=== PATIENT | female | born 2000 | race Caucasian/White ===

== ENCOUNTER 2019-12-20 12:25 | Emergency (ER) | payer MEDICAID ==
[2019-12-20] MEDS ORDERED: HYDROmorphone 1 MG/ML CARPUJECT IVP STA (12:38)
--- NOTE | 2019-12-20 12:39 | ED Physician Documentation ---
PD HPI ABD PAIN - Stated complaint Stated Complaint: ABD CRAMPING, VOMITING - History obtained from History obtained from: Patient (19-year-old woman had a migraine this morning which is not too out of the ordinary for her but then developed severe sudden onset right pelvic pain that she describes as a cramping not associated with bleeding or fluid loss. No possibility of . No fevers. Pain was very sudden. Headache is better now, she took naproxen and Compazine at home for that.) Review of Systems Ten Systems: 10 systems reviewed and negative Constitutional: denies: Fever, Chills Respiratory: denies: Dyspnea, Cough GI: reports: Abdominal Pain, Nausea, Vomiting. denies: Constipation, Diarrhea : denies: Dysuria, Frequency PD PAST MEDICAL HISTORY - Past Medical History Past Medical History: Yes Neuro: Headaches, Migraines Endocrine/Autoimmune: HyPOthyroidism - Allergies Allergies/Adverse Reactions: Allergies Allergy/AdvReac Type Severity Reaction Status Date / Time amoxicillin [From Augmentin] Allergy Unknown Verified 12/20/19 12:40 clavulanic acid Allergy Unknown Verified 12/20/19 12:40 [From Augmentin] - Living Situation Living Situation: reports: With family - Social History Does the pt smoke?: No Does the pt drink ETOH?: No PD ED PE NORMAL - Vitals Vital signs reviewed: Yes - General General: Alert and oriented X 3, Other (Appears uncomfortable) - HEENT HEENT: PERRL, EOMI - Neck Neck: Supple, no meningeal sign, No bony TTP - Cardiac Cardiac: RRR, No murmur - Respiratory Respiratory: No respiratory distress - Abdomen Abdomen: Normal bowel sounds, Other (Tender in the right pelvis, inferior and medial to McBurney's point without surgical signs.) - Back Back: No CVA TTP, No spinal TTP - Derm Derm: Normal color, Warm and dry - Extremities Extremities: No edema, No calf tenderness / cord - Neuro Neuro: Alert and oriented X 3, Normal speech Results - Vitals Vitals: Vital Signs - 24 hr 12/20/19 12/20/19 12:35 12:50 Temperature 36.9 C Heart Rate 85 76 Respiratory 16 16 Rate Blood Pressure 131/83 H 131/83 H O2 Saturation 99 100 Oxygen O2 Source Room air - Labs Labs: Laboratory Tests 03/12/20 03/12/20 03/12/20 13:00 13:00 13:00 WBC 9.8 RBC 4.65 Hgb 13.6 Hct 40.5 MCV 87.1 MCH 29.2 MCHC 33.6 RDW 12.9 Plt Count 258 MPV 10.0 Neut # (Auto) 6.7 H Lymph # (Auto) 2.1 [place] # (Auto) 0.5 Eos # (Auto) 0.4 Baso # (Auto) 0.0 Absolute Nucleated RBC 0.00 Nucleated RBC % 0.0 Sodium 134 L Potassium 3.3 L Chloride 102 Carbon Dioxide 23 Anion Gap 9.0 BUN 8 Creatinine 0.7 Estimated GFR (MDRD) 106 Glucose 95 Calcium 8.9 Total Bilirubin 0.8 AST 19 ALT 13 Alkaline Phosphatase 77 Total Protein 7.1 Albumin 4.2 Globulin 2.9 Albumin/Globulin Ratio 1.4 Lipase 29 TSH 3.65 Thyroxine (T4) 6.41 Free T3 pg/mL Urine Color Urine Clarity Urine pH Ur Specific [place] Urine Protein Urine Glucose (UA) Urine Ketones Urine Occult Blood Urine Nitrite Urine Bilirubin Urine Urobilinogen Ur Leukocyte Esterase Ur Microscopic Review Urine Culture Comments Urine HCG, Qual 12/20/19 12/20/19 13:00 14:02 WBC RBC Hgb Hct MCV MCH MCHC RDW Plt Count MPV Neut # (Auto) Lymph # (Auto) [place] # (Auto) Eos # (Auto) Baso # (Auto) Absolute Nucleated RBC Nucleated RBC % Sodium Potassium Chloride Carbon Dioxide Anion Gap BUN Creatinine Estimated GFR (MDRD) Glucose Calcium Total Bilirubin AST ALT Alkaline Phosphatase Total Protein Albumin Globulin Albumin/Globulin Ratio Lipase TSH Thyroxine (T4) Free T3 pg/mL 3.85 Urine Color YELLOW Urine Clarity CLEAR Urine pH 8.0 H Ur Specific [place] 1.015 Urine Protein NEGATIVE Urine Glucose (UA) NEGATIVE Urine Ketones NEGATIVE Urine Occult Blood NEGATIVE Urine Nitrite NEGATIVE Urine Bilirubin NEGATIVE Urine Urobilinogen 0.2 (NORMAL) Ur Leukocyte Esterase NEGATIVE Ur Microscopic Review NOT INDICATED Urine Culture Comments NOT INDICATED Urine HCG, Qual NEGATIVE - Rads (name of study) Pelvic sono Radiology: EMP read contemporaneously (mod to lg pelvic FF) PD MEDICAL DECISION MAKING - ED course ED course: 19-year-old woman with very acute right pelvic pain today much better in fact gone after single dose of narcotics. Ultrasound shows free fluid, presumed ruptured cyst. Case discussed by phone with on-call OB, Dr. Ernst who agreed with outpatient conservative management. Departure - Departure Disposition: Home, Self Care Clinical Impression: Free fluid in pelvis, Ovarian bleed, right Hypothyroid Qualifiers: Hypothyroidism type: unspecified Qualified Code(s): E03.9 - Hypothyroidism, unspecified Condition: Good Record reviewed to determine appropriate education?: Yes Instructions: ED Pelvic Pain [facility] Follow-Up: [facility] [Provider Group] Comments: As discussed there is no evidence of a persistent ovarian cyst, presume you had one and it bled based on the free fluid in your pelvis. If you are starting to feel weak and dizzy or pass out please return for reevaluation. Thyroid function testing today is normal.
[2019-12-20 13:30] LABS: BASOPHILS % (AUTO) 0.4 %; EOSINOPHILS # (AUTO) 0.4 10^3/uL (0.0-0.7); EOSINOPHILS % (AUTO) 3.6 %; HGB - HEMOGLOBIN 13.6 g/dL (12.0-16.0); LYMPHOCYTES # (AUTO) 2.1 10^3/uL (1.5-3.5); LYMPHOCYTES % (AUTO) 21.1 %; MEAN CORPUSCULAR HEMOGLOBIN 29.2 pg (27.0-31.0); MEAN CORPUSCULAR HGB CONC 33.6 g/dL (32.0-36.0); MEAN CORPUSCULAR VOLUME 87.1 fL (81.0-99.0); MONOCYTES # (AUTO) 0.5 10^3/uL (0.0-1.0); MONOCYTES % (AUTO) 5.5 %; NEUTROPHILS # (AUTO) 6.7 10^3/uL (1.5-6.6); NEUTROPHILS % (AUTO) 68.9 %; PLT - PLATELET COUNT 258 10^3/uL (130-450); RED BLOOD COUNT 4.65 10^6/uL (4.20-5.40); RED CELL DISTRIBUTION WIDTH 12.9 % (12.0-15.0); WHITE BLOOD COUNT 9.8 x10^3/uL (4.8-10.8)
[2019-12-20 13:40] LABS: ALBUMIN 4.2 g/dL (3.2-5.5); ALBUMIN/GLOBULIN RATIO 1.4 (1.0-2.2); BILIRUBIN,TOTAL 0.8 mg/dL (0.2-1.0); CALCIUM 8.9 mg/dL (8.5-10.3); CREATININE 0.7 mg/dL (0.4-1.0); TOTAL PROTEIN 7.1 g/dL (6.7-8.2)
[2019-12-20 13:53] LABS: T4 (THYROXINE) 6.41 ug/dL (6.09-12.23)
[2019-12-20 13:57] LABS: THYROID STIMULATING HORMONE 3.65 uIU/mL (0.34-5.60)
[2019-12-20 14:09] LABS: BILIRUBIN,URINE NEGATIVE (NEGATIVE); GLUCOSE, URINE (UA) NEGATIVE (NEGATIVE); KETONES,URINE (UA) NEGATIVE (NEGATIVE); LEUKOCYTE ESTERASE, URINE NEGATIVE (NEGATIVE); NITRITE,URINE NEGATIVE (NEGATIVE); OCCULT BLOOD,URINE NEGATIVE (NEGATIVE); PROTEIN,URINE NEGATIVE (NEGATIVE); UROBILINOGEN,URINE 0.2 (NORMAL) E.U./dL (NORMAL)
[2019-12-20 14:11] LABS: CLARITY,URINE CLEAR (CLEAR); HCG UR QUAL NEGATIVE
--- NOTE | 2019-12-20 14:15 | Ultrasound Report ---
Reason: R pelvic pain Procedure Date: 12/20/2019 Accession Number: [id number] / [id number] Procedure: US - Pelvic w/Transvag+Doppler Comp CPT Code: Final Report FULL RESULT: EXAM: PELVIC ULTRASOUND WITH DOPPLERS CLINICAL HISTORY: Right pelvic pain. COMPARISON: None. TECHNIQUE: Realtime transabdominal imaging performed to identify the uterus and adnexa and as an overview of other pelvic structures, followed by transvaginal imaging for better assessment of the endometrium and adnexa, with static image documentation. Color flow imaging and Doppler spectral analysis was performed to evaluate blood flow to the ovaries given pelvic pain and clinical concern for ovarian torsion. FINDINGS: Uterus: 7.2 x 2.6 x 3.7 cm, volume 36 cc. Anteverted position. Normal overall size and echotexture. Masses: None. Endometrium: Appropriately positioned intrauterine device is noted, mildly limiting visualization of the endometrium which appears grossly normal. Cervix: Unremarkable. Right Ovary: 2.2 x 2.1 x 2.7 cm, volume 6.5 cc. Normal echotexture. Arterial and venous blood flow are present. PSV 10 cm/sec. RI 0.62. Adnexa are unremarkable. Left Ovary: 3.7 x 2.5 x 2.9 cm, volume 14 cc. Normal echotexture. Arterial and venous blood flow are present. PSV 30.3 cm/sec. RI 0.43. Adnexa are unremarkable. Free Fluid: Moderate to large quantity simple appearing fluid. Other: None. IMPRESSION: 1. Moderate to large amount of free pelvic fluid. 2. Asymmetric ovaries, both have appearance and size which is within normal range, both demonstrate preserved arterial and venous flow, asymmetrically greater blood flow with a lower resistive index on the left. Recommendation: Correlation to beta hCG to exclude possibility of nonvisualized ectopic . RADIA
[2019-12-20] MEDS ORDERED: ONDANSETRON 4 MG/2 ML VIAL IVP STA (14:24)
[2019-12-20 14:36] VITALS: BP 128/74
== END 2019-12-20 14:45 | disposition home or self-care (01) ==
LOC: ED 12:25
DX: N83.8 Other noninflammatory disorders of ovary, fallopian tube and broad ligament (principal); G43.909 Migraine, unspecified, not intractable, without status migrainosus; E03.9 Hypothyroidism, unspecified
CPT/HCPCS: 36415; 76830; 76856; 80053; 81003; 81025; 83690; 84436; 84443; 84481; 85025; 93975; 96374; 96375; 99284; 99285; J1170; 81001; 87086

== ENCOUNTER 2020-08-19 21:36 | Emergency (ER) | payer MEDICAID ==
[2020-08-19 21:46] VITALS: BP 119/82
[2020-08-19 22:18] LABS: BILIRUBIN,URINE NEGATIVE (NEGATIVE); GLUCOSE, URINE (UA) NEGATIVE (NEGATIVE); KETONES,URINE (UA) NEGATIVE (NEGATIVE); LEUKOCYTE ESTERASE, URINE NEGATIVE (NEGATIVE); NITRITE,URINE NEGATIVE (NEGATIVE); OCCULT BLOOD,URINE TRACE-INTA (NEGATIVE); PH,URINE 5.5 PH (5.0-7.5); PROTEIN,URINE NEGATIVE (NEGATIVE); UROBILINOGEN,URINE 0.2 (NORMAL) E.U./dL (NORMAL)
[2020-08-19] MEDS ORDERED: ONDANSETRON 4 MG/2 ML VIAL IVP STA ×2 (22:23→23:54)
[2020-08-19] MEDS ORDERED: KETOROLAC 30 MG/ML VIAL IVP STA (22:23)
[2020-08-19] MEDS ORDERED: MORPHINE 10 MG/ML VIAL IVP STA (22:23)
[2020-08-19] MEDS ORDERED: SODIUM CHLORIDE 0.9% 1,000 ML IV STA (22:23)
--- NOTE | 2020-08-19 22:24 | ED Physician Documentation ---
PD HPI ABD PAIN - Stated complaint Stated Complaint: ABD PX, NAUSEA - Chief complaint Chief Complaint: Abd Pain - History obtained from History obtained from: Patient - History of Present Illness Timing - onset: Today (this morning about 10 am) Timing - details: Abrupt onset, Still present Quality: Cramping, Aching, Pain Location: LLQ (and now radiating to mid left abd.) Improved by: No: Eating Worsened by: Palpation. No: Eating, Breathing Associated symptoms: Nausea. No: Fever, Vomiting, Diarrhea, Constipation (last BM was this morning) Similar symptoms before: Diagnosis (feels similar to ruptured ovarian cyst in the past.) Recently seen: Not recently seen Review of Systems Constitutional: denies: Fever, Chills Nose: denies: Rhinorrhea / runny nose, Congestion Throat: denies: Sore throat Respiratory: denies: Cough GI: reports: Nausea. denies: Vomiting, Constipation, Diarrhea : denies: Dysuria PD PAST MEDICAL HISTORY - Past Medical History Neuro: Headaches, Migraines Endocrine/Autoimmune: HyPOthyroidism - Allergies Allergies/Adverse Reactions: Allergies Allergy/AdvReac Type Severity Reaction Status Date / Time amoxicillin [From Augmentin] Allergy Unknown Verified 08/19/20 21:46 clavulanic acid Allergy Unknown Verified 08/19/20 21:46 [From Augmentin] - Social History Does the pt smoke?: No Smoking Status: Never smoker Does the pt drink ETOH?: No PD ED PE NORMAL - Vitals Vital signs reviewed: Yes - General General: Alert and oriented X 3, Well developed/nourished - Cardiac Cardiac: RRR, No murmur - Respiratory Respiratory: Clear bilaterally - Abdomen Abdomen: Normal bowel sounds, Soft, Non distended, No organomegaly, Other (tender LLQ with local guarding but no percussion nor rebound tenderness. ) - Back Back: No CVA TTP - Derm Derm: Normal color, Warm and dry Results - Vitals Vitals: Vital Signs - 24 hr 08/19/20 08/19/20 21:41 22:08 Temperature 36.2 C L 36.2 C L Heart Rate 88 88 Respiratory 14 14 Rate Blood Pressure 119/82 H 119/82 H O2 Saturation 100 100 Oxygen O2 Source Room air - Labs Labs: Laboratory Tests 08/19/20 08/19/20 08/19/20 22:06 22:55 22:55 WBC 10.3 RBC 4.73 Hgb 13.7 Hct 42.0 MCV 88.8 MCH 29.0 MCHC 32.6 RDW 12.4 Plt Count 267 MPV 10.0 Neut # (Auto) 5.6 Lymph # (Auto) 3.2 [place] # (Auto) 0.8 Eos # (Auto) 0.6 Baso # (Auto) 0.1 Absolute Nucleated RBC 0.00 Nucleated RBC % 0.0 Sodium 138 Potassium 3.7 Chloride 108 Carbon Dioxide 23 Anion Gap 7.0 BUN 18 Creatinine 0.8 Estimated GFR (MDRD) 91 Glucose 95 Calcium 8.7 Urine Color YELLOW Urine Clarity CLEAR Urine pH 5.5 Ur Specific [place] >=1.030 H Urine Protein NEGATIVE Urine Glucose (UA) NEGATIVE Urine Ketones NEGATIVE Urine Occult Blood TRACE-INTA Urine Nitrite NEGATIVE Urine Bilirubin NEGATIVE Urine Urobilinogen 0.2 (NORMAL) Ur Leukocyte Esterase NEGATIVE Ur Microscopic Review NOT INDICATED Urine Culture Comments NOT INDICATED Urine HCG, Qual NEGATIVE - Rads (name of study) Pelvic U/S Radiology: Prelim report reviewed (small cyst. Some free fluid. Normal flow to ovaries. ), See rad report PD MEDICAL DECISION MAKING - ED course Complexity details: reviewed results, re-evaluated patient (improved with meds. ), considered differential, d/w patient Departure - Departure Disposition: 01 Home, Self Care Clinical Impression: Acute pelvic pain, Ovarian cyst rupture Condition: Stable Instructions: ED Cyst Ovarian Comments: Or ibuprofen 2-3 times a day for the next few days. To that add Tylenol if needed every 4-6 hours. Ondansetron if needed for nausea. Your ultrasound shows a small amount of free fluid in the pelvis which would be consistent with a ruptured cyst. I would anticipate improvement of the pain over the next couple of days steadily. Recheck if not better in that timeframe or return if worsening. Discharge Date/Time: 08/20/20 00:19
[2020-08-19 22:27] LABS: CLARITY,URINE CLEAR (CLEAR); HCG UR QUAL NEGATIVE
[2020-08-19 22:59] LABS: BASOPHILS # (AUTO) 0.1 10^3/uL (0.0-0.1); BASOPHILS % (AUTO) 0.6 %; EOSINOPHILS # (AUTO) 0.6 10^3/uL (0.0-0.7); EOSINOPHILS % (AUTO) 5.5 %; HGB - HEMOGLOBIN 13.7 g/dL (12.0-16.0); LYMPHOCYTES # (AUTO) 3.2 10^3/uL (1.5-3.5); LYMPHOCYTES % (AUTO) 31.2 %; MEAN CORPUSCULAR HGB CONC 32.6 g/dL (32.0-36.0); MEAN CORPUSCULAR VOLUME 88.8 fL (81.0-99.0); MONOCYTES # (AUTO) 0.8 10^3/uL (0.0-1.0); MONOCYTES % (AUTO) 7.9 %; NEUTROPHILS # (AUTO) 5.6 10^3/uL (1.5-6.6); NEUTROPHILS % (AUTO) 54.3 %; PLT - PLATELET COUNT 267 10^3/uL (130-450); RED BLOOD COUNT 4.73 10^6/uL (4.20-5.40); RED CELL DISTRIBUTION WIDTH 12.4 % (12.0-15.0); WHITE BLOOD COUNT 10.3 x10^3/uL (4.8-10.8)
[2020-08-19 23:07] LABS: CALCIUM 8.7 mg/dL (8.5-10.3); CREATININE 0.8 mg/dL (0.4-1.0)
[2020-08-19] MEDS ORDERED: ONDANSETRON ODT 4 MG Prepack 2 TL PRN (23:54)
[2020-08-19] MEDS ORDERED: ACETAMINOPHEN 325 MG TABLET PO STA (23:55)
--- NOTE | 2020-08-20 08:27 | Ultrasound Report ---
PROCEDURE: Pelvic w/Transvag+Doppler Ltd INDICATIONS: left pelvic pain onset this AM, persists TECHNIQUE: Real-time scanning was performed of the pelvic organs, with image documentation. Additional endovagi nal scanning was necessary due to incomplete visualization of the adnexal and endometrial structures by transabdominal scanning. COMPARISON: None. FINDINGS: Transabdominal scanning: Limited scanning through the kidneys shows no hydronephrosis. No pathologi c free abdominal or pelvic fluid. Endovaginal scanning: Uterus: Uterus is normal in size at 6.5 x 3.9 x 2.3 cm. The endometrium measures 2.7 mm in combined thickness. IUD is in appropriate position. Ovaries: Right ovary measures 3.2 x 2.1 x 1.6 cm, volume 5.6 cc. Arterial venous flow are identified . Less than 12 follicles are noted. Left ovary measures 3.2 x 2.8 x 2.3 cm, volume 10.8 cc. There is a focus of decreased echogenicity measuring 18 x 13 x 13 mm. Arterial venous flow are identified. Minimal fluid is noted within the dependent pelvis. IMPRESSION: 1. Small left ovarian cyst versus prominent follicle 2. IUD is in appropriate position. The above findings are concordant with preliminary report. Reviewed by: Diandra Guadalupe MD on 08/20/2020 8:26 AM PST Approved by: Diandra Guadalupe MD on 08/20/2020 8:26 AM PST Station ID: [id number]
== END 2020-08-20 00:19 | disposition home or self-care (01) ==
LOC: ED 21:36
DX: N83.202 Unspecified ovarian cyst, left side (principal)
CPT/HCPCS: 36415; 76830; 76856; 80048; 81003; 81025; 85025; 93976; 96374; 96375; 96376; 99284; A9270; 81001; 87086

== ENCOUNTER 2020-09-25 15:10 | Outpatient (CLI) | payer MEDICAID | END 2020-09-25 23:59 | disposition home or self-care (01) | LOC: COV 15:10 | PROVIDERS: ATTEND Family Medicine | DX: R05 Cough (principal); Z20.828 Contact with and (suspected) exposure to other viral communicable diseases; M79.10 Myalgia, unspecified site; R53.83 Other fatigue; J02.9 Acute pharyngitis, unspecified; R09.81 Nasal congestion; R11.2 Nausea with vomiting, unspecified ==

== ENCOUNTER 2020-11-14 16:43 | Outpatient (CLI) | payer MEDICAID | END 2020-11-14 16:44 | disposition home or self-care (01) | LOC: COV 16:43 | PROVIDERS: ATTEND Family Medicine | DX: Z20.822 Contact with and (suspected) exposure to COVID-19 (principal) ==

== ENCOUNTER 2020-12-31 10:15 | Emergency (ER) | payer MEDICAID ==
[2020-12-31 10:19] VITALS: BP 135/89
--- NOTE | 2020-12-31 12:02 | ED Physician Documentation ---
History of Present Illness - Stated complaint Stated Complaint: COGESTION/COUGH - Chief complaint Chief Complaint: Heent - History obtained from History obtained from: Patient - Additonal information Additional information: 20-year-old woman with past medical history of hypothyroidism presents with sinus congestion for the past 4 days associated with ear fullness worse in the left ear versus the right. She does have history of tympanostomy tubes in the left ear that have been removed with resulting scar tissue. Past surgical history of tonsillectomy. Patient denies fever, sore throat, chest congestion, shortness of breath, back pain, rash. 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 Review of Systems Ten Systems: 10 systems reviewed and negative Constitutional: denies: Fever Nose: reports: Congestion Respiratory: reports: Dyspnea, Cough (cough productive of clear sputum) PD PAST MEDICAL HISTORY - Past Medical History Neuro: Headaches, Migraines Endocrine/Autoimmune: HyPOthyroidism - Past Surgical History Past Surgical History: No - Present Medications Home Medications: Ambulatory Orders Medication Instructions Recorded Confirmed Doxycycline Hyclate 150 mg PO BID 7 Days #14 tablet 12/31/20 Levothyroxine [Synthroid] 100 mcg PO QDAC 30 Days #30 tablet 12/31/20 - Allergies Allergies/Adverse Reactions: Allergies Allergy/AdvReac Type Severity Reaction Status Date / Time amoxicillin [From Augmentin] Allergy Unknown Verified 12/31/20 10:17 clavulanic acid Allergy Unknown Verified 12/31/20 10:17 [From Augmentin] - Social History Does the pt smoke?: No Smoking Status: Never smoker Does the pt drink ETOH?: No PD ED PE NORMAL - Vitals Vital signs reviewed: Yes - General General: Alert and oriented X 3, No acute distress, Well developed/nourished - HEENT HEENT: Atraumatic, PERRL, EOMI, Ears normal (L ear with chronic scarring), Moist mucous membranes, Pharynx benign - Neck Neck: Supple, no meningeal sign - Cardiac Cardiac: RRR - Respiratory Respiratory: No respiratory distress, Clear bilaterally Results - Vitals Vitals: Vital Signs - 24 hr 12/31/20 10:18 Temperature 36.8 C Heart Rate 77 Respiratory 18 Rate Blood Pressure 135/89 H O2 Saturation 100 Oxygen O2 Source Room air PD MEDICAL DECISION MAKING - ED course ED course: 20-year-old woman with history of hypothyroidism presents with acute uncomplicated rhinosinusitis. She unfortunately does not have good follow-up because she is still in search of a primary doctor. For this reason I am going to prescribe antibiotics and renew her levothyroxine prescription for her. Resources will be provided for follow-up.Return precautions given Departure - Departure Disposition: 01 Home, Self Care Clinical Impression: Sinusitis, Hypothyroid Condition: Good Instructions: ED Sinusitis Abx Tx Follow-Up: Gilberto Brooke MD [Physician No Access] - Aaron Lazo MD [Physician No Access] - Prescriptions: Doxycycline Hyclate 150 mg PO BID 7 Days #14 tablet Levothyroxine [Synthroid] 100 mcg PO QDAC 30 Days #30 tablet Comments: You were seen in the emergency department for a sinus infection. Your ears looked normal. You should take these antibiotics as prescribed and follow-up with a primary doctor (we have provided a couple of options). Because you have had difficulty with follow-up with doctors, I am going to prescribe an antibiotic that you can take if you do not have improvement with symptomatic therapy after few days. It is possible that this is a viral infection at the antibiotic will not fix it but if it is bacterial then it should help. Please wear sunscreen if going outside on a cezar day while taking doxycycline because it can cause skin reactions. Return to the emergency department if you have any new or worsening symptoms or other concerns.
== END 2020-12-31 12:17 | disposition home or self-care (01) ==
LOC: ED 10:15
DX: J01.90 Acute sinusitis, unspecified (principal); E03.9 Hypothyroidism, unspecified
CPT/HCPCS: 99282; 99284

== ENCOUNTER 2021-04-30 19:15 | Emergency (ER) | payer MEDICAID ==
[2021-04-30] MEDS ORDERED: HYDROmorphone 1 MG/ML CARPUJECT IVP STA (20:33)
[2021-04-30] MEDS ORDERED: HYDROmorphone 1 MG/ML CARPUJECT IM STA (20:36)
--- NOTE | 2021-04-30 20:36 | ED Physician Documentation ---
History of Present Illness - Stated complaint Stated Complaint: BACK PX - Chief complaint Chief Complaint: Back Pain - Additonal information Additional information: 20-year-old female presents emergency department for evaluation of 2 days acute low back pain. She denies any inciting event or trauma. She simply noticed that yesterday at work her back was a little sore and as the night went on and the day today it has gotten increasingly worse. Pain is lower lumbar bilateral and radiates to both thighs. No fevers. No saddle anesthesia. No bowel or bladder incontinence. No history of injection drug use or cancer. She has taken 500 mg of naproxen with minimal relief. She is ambulatory without assistance. Her dad is concerned because he has a history of ankylosing spondylosis as well as her maternal grandmother. Review of Systems Constitutional: reports: Reviewed and negative Nose: reports: Reviewed and negative Throat: reports: Reviewed and negative Cardiac: reports: Reviewed and negative Respiratory: reports: Reviewed and negative GI: reports: Reviewed and negative : reports: Reviewed and negative Musculoskeletal: reports: Back pain Neurologic: reports: Reviewed and negative PD PAST MEDICAL HISTORY - Past Medical History Past Medical History: Yes Neuro: Headaches, Migraines Endocrine/Autoimmune: HyPOthyroidism - Past Surgical History Past Surgical History: No - Present Medications Home Medications: Ambulatory Orders Medication Instructions Recorded Confirmed Doxycycline Hyclate 150 mg PO BID 7 Days #14 tablet 12/31/20 04/30/21 Levothyroxine [Synthroid] 100 mcg PO QDAC 30 Days #30 tablet 12/31/20 04/30/21 methocarbamoL [Methocarbamol] 750 mg PO BID PRN #20 tablet 04/30/21 predniSONE [Deltasone] 40 mg PO DAILY 3 Days #6 tablet 04/30/21 - Allergies Allergies/Adverse Reactions: Allergies Allergy/AdvReac Type Severity Reaction Status Date / Time amoxicillin [From Augmentin] Allergy Unknown Verified 04/30/21 19:26 clavulanic acid Allergy Unknown Verified 04/30/21 19:26 [From Augmentin] - Social History Does the pt smoke?: No Smoking Status: Never smoker Does the pt drink ETOH?: Yes Does the pt have substance abuse?: Yes Substance Use and Type: Marijuana - Immunizations Immunizations are current?: Yes PD ED PE EXPANDED - General General: Alert, In Pain, Other (obese) - Cardiac Cardiac: Regular Rate, Radial strong equal, Cap refill < 2 sec - Respiratory Respiratory: Clear to ausultation kriss. No: Distress, Labored - Abdomen Abdomen: Normal Bowel sounds. No: Tender to palpation - Back Back: Soft tissue tenderness (Tenderness across the lower lumbar paraspinous muscles bilaterally. 2+ patellar reflexes bilaterally. No paresthesias of the lower legs. Motor strength 5 of 5. Antalgic but unassisted gait.). No: Vertebral tenderness, Straight leg raise + R, Straight leg raise + L, CVA TTP right, CVA TTP left - Derm Derm: Normal color. No: Warm and dry - Extremities Extremities: Normal. No: Deformity, Tenderness, Pedal edema bilateral, Right calf TTP/cord, Left calf TTP/cord - Neuro Neuro: Alert and Oriented X 3, CNII-XII intact. No: Normal gait (mildly antalgic) - GCS Eye Opening: Spontaneous Motor: Obeys Commands Verbal: Oriented Total: 15 Results - Vitals Vitals: Vital Signs - 24 hr 04/30/21 19:23 Temperature 36.2 C L Heart Rate 91 Respiratory 16 Rate Blood Pressure 126/75 O2 Saturation 96 Oxygen O2 Source Room air PD MEDICAL DECISION MAKING - ED course Complexity details: reviewed results, re-evaluated patient, d/w patient, d/w family ED course: Well-appearing 20-year-old female presents emergency department for evaluation of 2 days low back pain. No falls or trauma. No red flags on exam. Though she reports the back pain as severe her exam is relatively benign and reassuring. She had modest relief with some Dilaudid. 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 Patient was given a prescription for some prednisone as well as methocarbamol. Advised to continue the naproxen at home. Emergent worrisome return precautions were otherwise discussed. Departure - Departure Clinical Impression: Low back pain Qualifiers: Chronicity: acute Back pain laterality: bilateral Sciatica presence: without sciatica Qualified Code(s): M54.5 - Low back pain Condition: Stable Record reviewed to determine appropriate education?: Yes Instructions: ED Back Care Tips Prescriptions: predniSONE [Deltasone] 40 mg PO DAILY 3 Days #6 tablet methocarbamoL [Methocarbamol] 750 mg PO BID PRN #20 tablet PRN Reason: Pain Comments: Fransisca you are seen today for low back pain. I suspect that this is a minor inflammation of the muscles in your low back. Please fill the prescription for the prednisone and begin taking tomorrow as directed. Your first dose was given here in the ER. I would recommend that he continue the naproxen at home. For severe pain or spasm you can also take the methocarbamol. Because there is a strong family history of ankylosing spondylosis I would like you to follow-up with your primary care doctor to determine if you would benefit from physical therapy or any imaging. The most important thing with back pain is to continue to move. If your symptoms are worsening, you have fevers, inability to urinate or have a bowel movement normally then please return immediately to the ER for a second look
[2021-04-30 20:50] LABS: BILIRUBIN,URINE NEGATIVE (NEGATIVE); CLARITY,URINE CLEAR (CLEAR); GLUCOSE, URINE (UA) NEGATIVE (NEGATIVE); KETONES,URINE (UA) TRACE mg/dL (NEGATIVE); LEUKOCYTE ESTERASE, URINE NEGATIVE (NEGATIVE); NITRITE,URINE NEGATIVE (NEGATIVE); OCCULT BLOOD,URINE NEGATIVE (NEGATIVE); PH,URINE 6.5 PH (5.0-7.5); PROTEIN,URINE NEGATIVE (NEGATIVE); UROBILINOGEN,URINE 4 E.U./dL (NORMAL)
[2021-04-30 20:53] LABS: HCG UR QUAL NEGATIVE
[2021-04-30] MEDS ORDERED: predniSONE 20 MG TABLET PO STA (21:16)
[2021-04-30 21:39] VITALS: BP 120/86
== END 2021-04-30 21:35 | disposition home or self-care (01) ==
LOC: ED 19:15
DX: M54.5 Low back pain (principal); Z82.69 Family history of other diseases of the musculoskeletal system and connective tissue
CPT/HCPCS: 81003; 81025; 96372; 99283; 99284; J1170; J7512; 81001; 87086

== ENCOUNTER 2021-06-09 11:05 | Emergency (ER) | payer OTHER, MEDICAID ==
[2021-06-09 11:15] VITALS: BP 126/70
--- NOTE | 2021-06-09 11:52 | ED Physician Documentation ---
PD HPI LOWER EXT INJURY - Stated complaint Stated Complaint: FALL - Chief complaint Chief Complaint: Trauma Ext - History obtained from History obtained from: Patient - History of Present Illness PD HPI LOW EXT INJURY LOCATION: Right, Ankle, Foot Type of injury: Fall, Twist Where injury occurred: Work Timing - onset: Today Timing - duration: Hours Timing - details: Abrupt onset, Still present Improved by: Rest Worsened by: Moving, Palpating Associated symptoms: Swelling. No: Weakness, Numbness, Tingling Contributing factors: No: Anticoagulated Similar symptoms before: Has not had sx before Recently seen: Not recently seen - Additional information Additional information: Please previously well 20-year-old female was at work today when she went down a small pathway and twisted her ankle. When she did this she strained her back as well she is having some pain in the right lower back as well as the right ankle and foot. 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[employer]IC: Ovarian cysts : None HEENT: None Psych: Depression, Anxiety Musculoskeletal: None Derm: None - Past Surgical History Past Surgical History: No HEENT: Tonsil/Adenoidectomy - Present Medications Home Medications: Ambulatory Orders Medication Instructions Recorded Confirmed Doxycycline Hyclate 150 mg PO BID 7 Days #14 tablet 12/31/20 04/30/21 Levothyroxine [Synthroid] 100 mcg PO QDAC 30 Days #30 tablet 12/31/20 04/30/21 methocarbamoL [Methocarbamol] 750 mg PO BID PRN #20 tablet 04/30/21 predniSONE [Deltasone] 40 mg PO DAILY 3 Days #6 tablet 04/30/21 Cyclobenzaprine [Flexeril] 10 mg PO TID PRN #20 tablet 06/09/21 - Allergies Allergies/Adverse Reactions: Allergies Allergy/AdvReac Type Severity Reaction Status Date / Time amoxicillin [From Augmentin] Allergy Unknown Verified 06/09/21 11:15 clavulanic acid Allergy Unknown Verified 06/09/21 11:15 [From Augmentin] - Social History Does the pt smoke?: No Smoking Status: Never smoker Does the pt drink ETOH?: Yes Does the pt have substance abuse?: Yes Substance Use and Type: Marijuana - Immunizations Immunizations are current?: Yes PD ED PE NORMAL - Vitals Vital signs reviewed: Yes (normal ) - General General: Alert and oriented X 3, No acute distress, Well developed/nourished - HEENT HEENT: Atraumatic, PERRL, EOMI - Respiratory Respiratory: No respiratory distress - Derm Derm: Normal color, Warm and dry, No rash - Extremities Extremities: No deformity, No edema, Other (tenderness to the dorsum of the right foot without swelling or ecchymosis. No tenderness to the proximal 5th. Tender to medial malleolus and over talofibular lig. 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, No motor deficit, No sensory deficit, Normal speech Eye Opening: Spontaneous Motor: Obeys Commands Verbal: Oriented GCS Score: 15 - Psych Psych: Normal mood, Normal affect Results - Vitals Vitals: Vital Signs - 24 hr 06/09/21 06/09/21 11:09 13:02 Temperature 36.8 C Heart Rate 66 66 Respiratory 15 15 Rate Blood Pressure 126/70 126/70 O2 Saturation 97 98 Oxygen O2 Source Room air - Rads (name of study) foot Radiology: Prelim report reviewed (Impression: No gross acute right foot fracture or dislocation.), EMP read indepedently, See rad report Ankle Radiology: Prelim report reviewed (Impression: No gross acute ankle fracture or dislocation. Mild lateral ankle soft tissue swelling. Intact ankle mortise.), EMP read indepedently, See rad report Lumbar spine Radiology: Prelim report reviewed (Impression: No gross acute lumbar spine compression fracture or spondylolisthesis), EMP read indepedently, See rad report PD MEDICAL DECISION MAKING - ED course Complexity details: reviewed results, re-evaluated patient, considered differential, d/w patient ED course: 20-year-old female who has twisted her left ankle and foot and is complaining of pain to the foot and ankle has also wrenched her back and has some pain in the right lower back. We have done x-rays of the foot ankle and back and there are no evidence of fracture. She is placed into a walking boot and taken off work for 2 days. Departure - Departure Disposition: 01 Home, Self Care Clinical Impression: Low back pain Qualifiers: Chronicity: acute Back pain laterality: right Sciatica presence: without sciatica Qualified Code(s): M54.5 - Low back pain Foot sprain Qualifiers: Encounter type: initial encounter Laterality: right Qualified Code(s): S93.601A - Unspecified sprain of right foot, initial encounter Ankle sprain Qualifiers: Encounter type: initial encounter Involved ligament of ankle: calcaneofibular ligament Laterality: right Qualified Code(s): S93.411A - Sprain of calcaneofibular ligament of right ankle, initial encounter Condition: Stable Instructions: ED Sprain Ankle W X Ray, ED Sprain Strain Lumbar, ED Sprain Foot Follow-Up: [facility] [Provider Group] Prescriptions: Cyclobenzaprine [Flexeril] 10 mg PO TID PRN #20 tablet PRN Reason: Spasms Forms: Activity restrictions Discharge Date/Time: 06/09/21 13:03
--- NOTE | 2021-06-09 12:27 | XRAY Report ---
PROCEDURE: Lumbar Spine 2 View INDICATIONS: fall, right lower back pain TECHNIQUE: 2 views of the lumbar spine were acquired. COMPARISON: None. FINDINGS: Bones: 5 [id number] vertebrae are present. There is straightening of normal lumbar lordosis.. No vertebral body compression fractures. No suspicious bony lesions. Soft tissues: Overlying bowel gas pattern is normal. No suspicious soft tissue calcifications. IMPRESSION: No gross acute lumbar spine compression fracture or spondylolisthesis. Reviewed by: Tylor Nunez MD on 06/09/2021 12:25 PM PDT Approved by: Tylor Nunez MD on 06/09/2021 12:25 PM PDT Station ID: [id number]
--- NOTE | 2021-06-09 12:27 | XRAY Report ---
PROCEDURE: Ankle 3 View RT INDICATIONS: ankle twist with foot and ankle pain medial TECHNIQUE: 3 views of the ankle were acquired. COMPARISON: None FINDINGS: Bones: No fractures or dislocations. Ankle mortise is normally aligned. No suspicious bony lesions . Soft tissues: No tibiotalar joint effusion. Achilles tendon appears normal. Mild lateral ankle sof t tissue swelling is seen. IMPRESSION: No gross acute ankle fracture or dislocation. Mild lateral ankle soft tissue swelling. I ntact ankle mortise. Reviewed by: Tylor Nunez MD on 06/09/2021 12:26 PM PDT Approved by: Tylor Nunez MD on 06/09/2021 12:26 PM PDT Station ID: [id number]
--- NOTE | 2021-06-09 12:28 | XRAY Report ---
PROCEDURE: Foot 3 View RT INDICATIONS: twist of foot dorsal pain TECHNIQUE: 3 views of the foot were acquired. COMPARISON: None FINDINGS: Bones: No fractures or dislocations. No suspicious bony lesions. Soft tissues: No tibiotalar joint effusion. Achilles tendon appears normal. IMPRESSION: No gross acute right foot fracture or dislocation. Reviewed by: Tylor Nunez MD on 06/09/2021 12:27 PM PDT Approved by: Tylor Nunez MD on 06/09/2021 12:27 PM PDT Station ID: [id number]
== END 2021-06-09 13:03 | disposition home or self-care (01) ==
LOC: ED 11:05
DX: S93.411A Sprain of calcaneofibular ligament of right ankle, initial encounter (principal); S93.601A Unspecified sprain of right foot, initial encounter; M54.5 Low back pain; X50.1XXA Overexertion from prolonged static or awkward postures, initial encounter; Y99.0 Civilian activity done for income or pay
CPT/HCPCS: 1040M; 99282; 99284